=== PATIENT | male | born 1970 | race Caucasian/White ===

== ENCOUNTER 2024-08-31 19:29 | Emergency (ER) | payer MEDICARE, SELFPAY ==
[2024-08-31 19:35] VITALS: BP 117/83
[2024-08-31 20:07] LABS: COVID-19 Antigen Positive (Negative)
[2024-09-01 00:27] VITALS: BP 134/81
--- NOTE | 2024-09-01 02:41 | ED.GENMED ---
History of Present Illness
General
Chief Complaint: Fever
Source: patient and spouse
Time Seen by Provider: 08/31/24 22:45
History of Present Illness
History of Present Illness:
53-year-old male presents to the emergency room complaining of fever. Patient does not feel all that poorly but has a history of a heart transplant. He was advised to go to the emergency room for evaluation if he ever developed a temperature over
101. Patient does not recall any sick contacts. He has a mild cough. No shortness of breath. Heart transplant was performed in 2010. He has had the most recent COVID vaccinations.
Past History
Past History
ED Past Medical History: Cancer, Other (cardiac transplant lymphoma) and Other (Guilbert's, non-Hodgkin's lymphoma heart transplant)
ED Past Surgical History: Cardiac (txp heart)
Social History
Tobacco: Non-smoker
Alcohol: None
Drug: None
Personal:
Living: with family
Employment: Employed
Family History
Family History: Other (Noncontributory)
Phy Exam
Physical Exam
Physical Exam:
General: Awake, Alert, Oriented X3. No acute distress.
Vitals: unremarkable
Head: Atraumatic
Eyes: Pupils equal, EOMI
Throat: Airway intact, no exudates
Neck: Trachea midline
Lungs: Clear and equal b/l
Heart: Regular rate, no murmurs
Abd: Soft, Nontender, No pulsatile mass
Neuro: Nonfocal
Skin: Warm, dry, no rash
Extremities: pulses equal b/l, no edema
Course
Orders/Labs/Results
Orders:
Orders
08/31/24 19:42
COVID-19 Antigen Urgent
Source: Nasal Swab
INF RAPID [Influenza A+B Rapid Molecular] Urgent
DELLA Source: Nasal Swab
Specimen Description:
08/31/24 23:03
Electrocardiogram (*1) Urgent
Reason for Study: Fatigue / Weakness
EKG- Treatment ONCE
Abnormal Lab Results
08/31/24
19:42
SARS-CoV-2 Antigen Positive A
(Negative)
Vital Signs
Initial and Last Documented VS:
Initial Vital Signs
Temp Pulse Resp BP Pulse Ox
99.2 F 90 18 117/83 96
08/31/24 19:35 08/31/24 19:35 08/31/24 19:35 08/31/24 19:35 08/31/24 19:35
Last Documented Vital Signs
Temp Pulse Resp BP Pulse Ox
99.2 F 81 18 134/81 97
08/31/24 19:35 09/01/24 00:27 09/01/24 00:27 09/01/24 00:27 09/01/24 00:27
MDM/Problems Addressed
Differential Diagnosis Includes:
Influenza, COVID, pneumonia
MDM/Problems Addressed:
Patient presents with fever. Workup here shows that he is positive for COVID. Patient is not a candidate for Paxlovid use as his antirejection medications interact with Paxlovid. I did discuss the patient's presentation with the physician on-call
for the heart transplant team. He agreed that the best course of action at this point is supportive care with Tylenol and fluids. Patient should call the transplant team if he has any questions or concerns. Return to the emergency room if you
develop significant shortness of breath or any other concerns.
*Pulse Oximetry
Patient hypoxic: no
*EKG
Heart Rate: 64
Rate: normal
Rhythm: sinus
Interval: first degree heart block
QRS Pattern: other (Incomplete right bundle branch block)
Ischemia: no ischemia
*Business Transformation Manager Interpretation
Rate: normal
Interpretation: normal
Rhythm: sinus
*Critical Care Note
Total Time (30-74mins, 75-104mins- exclusive of procedures): Not Applicable
ED Attending Note
-
Portions of this chart may have been created with voice recognition software.� Occasional wrong word or��sound alike� substitutions may have occurred due to the inherent limitations of voice recognition software.
Discharge Plan
Departure
Patient Disposition: Home (Routine Discharge)
Date of Disposition: 09/01/24
Time of Disposition: 00:13
Patient with high blood pressure during this ER visit?: No
Discharge Problem:
COVID-19
Instructions: Fever, Adult (DC), COVID-19 - ED discharge instructions
Prescriptions:
No Action
mycophenolate mofetil 500 MG tablet
500 mg PO BID
tacrolimus 1 MG capsule
1 mg PO BID
pravastatin 10 MG tablet
10 mg PO QPM
cetirizine 10 MG tablet
10 mg PO QPM
multivitamin with folic acid [Tab-A-Jem] 1 TABLET tablet
1 tab PO DAILY
(DME) blood sugar diagnostic [MedShape Verio test strips] 1 EACH strip
1 ea MC ACHS Qty: 200 0RF
Rx Instructions:
E11.65
insulin aspart U-100 [Novolog FlexPen U-100 Insulin] 300 UNITS/3 ML insulin pen
7 units SC AC Qty: 5 0RF
Rx Instructions:
E11.65
(DME) pen needle, diabetic [BD Ultra-Fine Micro Pen Needle] 1 EACH needle
1 ea MC ACHS Qty: 200 0RF
Rx Instructions:
BD SYBIL 4mm pen needle
11.65
(DME) lancets [The MomentTouch Delica Lancets] 1 EACH misc
1 ea MC ACHS Qty: 200 0RF
Rx Instructions:
E11.65
insulin glargine [Lantus Solostar U-100 Insulin] 300 UNITS/3 ML insulin pen
22 units SC HS
aspirin 81 MG tablet,delayed release (DR/EC)
81 mg PO DAILY
simethicone [Gas-X Extra Strength] 125 MG tablet,chewable
125 mg PO DIRECTED
bisacodyl 5 MG tablet,delayed release (DR/EC)
10 mg PO DIRECTED
polyethylene glycol 3350 [Miralax] 119 GM powder
119 gm PO DIRECTED
polyethylene glycol 3350 238 GM powder
238 gm PO DIRECTED PRN (Reason: prep)
Referrals:
Cortez Jacobsen, DO [Family Provider] -
Activity Restrictions/Additional Instructions:
You are positive for Covid. I discussed the situation with Dr. Feild at [facility]. He agreed that there is no additional medications neccesary at this time. Give them a call with any concerns. Return to the ER if you start to feel short of breath,
dizzy or have concerns you are getting worse. You are likely to develop a fever again over the next 5 days or so.
Interventions
Interventions:
*Risk Screen - Suicide Last Done: 08/31/24 19:35
*General Assessment Last Done: 08/31/24 19:35
*Neglect/Abuse Screening Last Done: 08/31/24 19:35
*ED COVID-19 Vaccine History Last Done: 08/31/24 19:35
*Nursing Disposition Last Done: 09/01/24 00:28
ED- Neurological Assessment Last Done: 08/31/24 23:24
Discharge Date and Time
Discharge Date/Time: 09/01/24 00:28
Print Language: CYMRAES
== END 2024-09-01 00:28 | disposition home or self-care (01) ==
LOC: EMR 19:29
PROVIDERS: Emergency Medicine; EMERGENCY PHYSICIAN Emergency Medicine; FAMILY PHYSICIAN Family Medicine
DX: U07.1 COVID-19 (principal); Z94.1 Heart transplant status; Z85.72 Personal history of non-Hodgkin lymphomas
CPT/HCPCS: 99284; 87502; 87811; 93005

== ENCOUNTER 2025-04-06 19:55 | Emergency (ER) | payer MEDICARE, SELFPAY ==
[2025-04-06 20:12] VITALS: BP 137/84
[2025-04-06 23:07] LABS: Glucose - Point of Care 107 mg/dl (70-99)
[2025-04-06 23:09] VITALS: BMI 26.0
[2025-04-06 23:12] VITALS: BP 118/83
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
[2025-04-07 01:06] LABS: Hematocrit 43.3 % (39.0-52.0); Hemoglobin 15.6 g/dL (13.0-18.0); Mean Corp Hgb Conc. 36.0 g/dL (33.0-37.0); Mean Corpuscular Volume 82.0 fL (80.0-94.0); Nucleated Red Blood Cells % 0 % (-); Platelet Count 164 10^3/uL (130-400); Red Cell Dist. Width 13.2 % (11.5-14.5)
[2025-04-07 01:44] LABS: ALT (SGPT) 25 U/L (0-50); AST (SGOT) 21 U/L (17-59); Albumin 4.8 g/dl (3.5-5.0); Alkaline Phosphatase 59 U/L (38-126); Blood Urea Nitrogen 26 mg/dl (9-20); Calcium 9.0 mg/dl (8.4-10.2); Carbon Dioxide 25 mmol/L (22-30); Chloride 107 mmol/L (98-107); Estimated Creatinine Clearance 108 ml/min; Glucose 102 mg/dl (70-99); Potassium 3.9 mmol/L (3.5-5.1); Sodium 142 mmol/L (135-145); Total Protein 7.1 g/dl (6.3-8.2); eGFR > 60.00
[2025-04-07 02:00] VITALS: BP 112/83
[2025-04-07 03:12] VITALS: BP 121/95
[2025-04-07 03:57] VITALS: BP 129/91
== END 2025-04-07 04:01 | disposition home or self-care (01) ==
LOC: EMR 19:55
PROVIDERS: Physician Assistant; EMERGENCY PHYSICIAN Emergency Medicine
DX: R42 Dizziness and giddiness (principal); R51.9 Headache, unspecified; M54.2 Cervicalgia; H53.2 Diplopia; V49.49XA Driver injured in collision with other motor vehicles in traffic accident, initial encounter; E11.9 Type 2 diabetes mellitus without complications; I48.91 Unspecified atrial fibrillation; Z94.1 Heart transplant status; Z79.82 Long term (current) use of aspirin
CPT/HCPCS: 99284; 70450; 70496; 70498; 72125; 80053; 82962; 85025; 93005; Q9967

== ENCOUNTER 2025-05-04 20:21 | Observation (INO) | payer MEDICARE, SELFPAY ==
[2025-05-04] VITALS (8 sets, daily range): BP systolic 114–129; BP diastolic 73–90; PULSE 56–65; BMI 25.6
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
[2025-05-04 18:21] LABS: Hematocrit 41.5 % (39.0-52.0); Hemoglobin 14.8 g/dL (13.0-18.0); Mean Corp Hgb Conc. 35.7 g/dL (33.0-37.0); Mean Corpuscular Volume 82.5 fL (80.0-94.0); Nucleated Red Blood Cells % 0 % (-); Platelet Count 174 10^3/uL (130-400); Red Cell Dist. Width 13.0 % (11.5-14.5)
[2025-05-04 18:37] LABS: ALT (SGPT) 23 U/L (0-50); AST (SGOT) 24 U/L (17-59); Albumin 4.5 g/dl (3.5-5.0); Alkaline Phosphatase 53 U/L (38-126); Blood Urea Nitrogen 30 mg/dl (9-20); Calcium 9.8 mg/dl (8.4-10.2); Carbon Dioxide 27 mmol/L (22-30); Chloride 106 mmol/L (98-107); Estimated Creatinine Clearance 96 ml/min; Glucose 145 mg/dl (70-99); Potassium 4.5 mmol/L (3.5-5.1); Sodium 138 mmol/L (135-145); Total Protein 6.8 g/dl (6.3-8.2); eGFR > 60.00
--- NOTE | 2025-05-04 18:38 | PTCARENOTE ---
Patient awaiting to come back with dinner to check poc glucose for insulin administration
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
[2025-05-04 20:14] LABS: Glucose - Point of Care 120 mg/dl (70-99)
[2025-05-04] MEDS: NOVOLOG vial 7 UNITS SC (20:28)
[2025-05-04 23:00] LABS: Glucose - Point of Care 152 mg/dl (70-99)
[2025-05-04] MEDS: NSS 1000 IV (23:03)
[2025-05-04] MEDS: MAGNESIUM OXIDE 400 MG PO (23:05)
[2025-05-04] MEDS: LANTUS 0.22 UNITS SC (23:06)
--- NOTE | 2025-05-04 23:38 | TRANSFER ---
Pt admitted from ED dx of dizziness/vertigo/concussion. Neurological checks as ordered. Pt AAOx4, able to make all needs known. Assessments as documented. Orthostatic VS as ordered. Call riggins within reach, bed in lowest position. IVF administered as
ordered.
[2025-05-05 03:09] VITALS: BP 120/70
[2025-05-05 07:03] LABS: Hematocrit 43.1 % (39.0-52.0); Hemoglobin 15.0 g/dL (13.0-18.0); Mean Corp Hgb Conc. 34.8 g/dL (33.0-37.0); Mean Corpuscular Volume 83.9 fL (80.0-94.0); Platelet Count 175 10^3/uL (130-400); Red Cell Dist. Width 12.9 % (11.5-14.5)
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
[2025-05-05 07:26] LABS: Blood Urea Nitrogen 27 mg/dl (9-20); Calcium 9.4 mg/dl (8.4-10.2); Carbon Dioxide 30 mmol/L (22-30); Chloride 108 mmol/L (98-107); Estimated Creatinine Clearance 96 ml/min; Glucose 109 mg/dl (70-99); HDL Cholesterol 29 mg/dl; LDL Cholesterol, Calculated 53 mg/dl; Potassium 4.6 mmol/L (3.5-5.1); Sodium 142 mmol/L (135-145); Very Low Density Lipoprotein 16 mg/dl (0-30); eGFR > 60.00
[2025-05-05 07:40] VITALS: BP 113/77
[2025-05-05] MEDS: THERAGRAN 1 TABLET PO (08:13)
[2025-05-05] MEDS: CELLCEPT 500 MG PO (08:14)
[2025-05-05] MEDS: PROGRAF 1 MG PO (08:14)
[2025-05-05 08:21] LABS: Glucose - Point of Care 94 mg/dl (70-99)
[2025-05-05] MEDS: NOVOLOG FLEXPEN SC (08:25)
[2025-05-05] MEDS: NOVOLOG FLEXPEN-LOW RESISTANCE SC (08:25)
[2025-05-05 08:35] VITALS: BP 113/77
[2025-05-05 09:11] LABS: Glycohemoglobin (HgbA1c) 5.7 % (4.0-5.6)
[2025-05-05] MEDS: NSS 1000 IV (09:23)
[2025-05-05 11:05] VITALS: BP 133/76
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
[2025-05-05 12:03] LABS: Glucose - Point of Care 161 mg/dl (70-99)
--- NOTE | 2025-05-05 12:03 | CM ---
Reviewed the chart notes and spoke with the patient and spouse at the bedside. The patient is admitted under observational status. The observation letter was provided and explained. The patient had no questions with regards to the letter.
The patient resides with his spouse in a second floor apartment with elevator access. The patient reports no DME/SNF in the past, but did have VN after cardiac surgery many years ago. The patient confirmed his pharmacy is [facility].
continues to be available to patient/family and is monitoring medical plan for needs at discharge.
Plan: Discharge to home when medically stable. No anticipated needs identified at this time.
[2025-05-05] MEDS: NOVOLOG FLEXPEN 7 UNITS SC (12:23)
[2025-05-05] MEDS: NOVOLOG FLEXPEN-LOW RESISTANCE 1 UNITS SC (12:24)
[2025-05-05 13:25] LABS: C-Reactive Protein < 5.00 mg/L (0.0-10.00)
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
[2025-05-05 15:15] VITALS: BP 114/71
[2025-05-06 16:43] LABS: Lyme Antibody Screen, EIA Negative (Negative)
[2025-05-09 16:04] LABS: Calprotectin, Fecal >3000 ug/g (<=49)
== END 2025-05-05 16:55 | disposition home or self-care (01) ==
LOC: 2 SOUTH 20:21
PROVIDERS: Nurse Practitioner Adult Health; Physician Assistant; ADMITTING PHYSICIAN Hospitalist; ATTENDING PHYSICIAN Hospitalist; CONSULT PHYSICIAN Internal Medicine; EMERGENCY PHYSICIAN Emergency Medicine; FAMILY PHYSICIAN Physician Assistant
DX: H81.12 Benign paroxysmal vertigo, left ear (principal); R15.2 Fecal urgency; E11.9 Type 2 diabetes mellitus without complications; E80.4 Gilbert syndrome; R43.0 Anosmia; J30.2 Other seasonal allergic rhinitis; Z79.4 Long term (current) use of insulin; Z79.624 Long term (current) use of inhibitors of nucleotide synthesis; Z79.82 Long term (current) use of aspirin; Z79.899 Other long term (current) drug therapy; Z85.72 Personal history of non-Hodgkin lymphomas; Z90.49 Acquired absence of other specified parts of digestive tract; Z94.1 Heart transplant status
CPT/HCPCS: 80048; 80053; 80061; 82248; 82962; 83036; 83993; 84443; 85025; 85027; 85652; 86140; 86618; 87045; 87046; 87324; 87328; 87329; 87427; 87449; 89055; 93005; 97112; 97162; 99284; G0378

== ENCOUNTER 2025-06-16 06:02 | Day surgery (SDC) | payer OTHER, SELFPAY ==
[2025-06-16 09:25] VITALS: BMI 25.4
[2025-06-16 09:26] VITALS: BMI 25.4
[2025-06-16 09:27] VITALS: BP 119/79
[2025-06-16 09:43] LABS: Glucose - Point of Care 189 mg/dl (70-99)
[2025-06-16 11:15] VITALS: BP 101/73
[2025-06-16 11:30] VITALS: BP 96/64
[2025-06-16 11:30] LABS: Glucose - Point of Care 132 mg/dl (70-99)
[2025-06-16 11:45] VITALS: BP 101/68
== END 2025-06-16 12:15 | disposition home or self-care (01) ==
LOC: SDS 06:02
PROVIDERS: ATTENDING PHYSICIAN Internal Medicine
DX: K63.89 Other specified diseases of intestine (principal); K62.89 Other specified diseases of anus and rectum; R19.5 Other fecal abnormalities; R19.4 Change in bowel habit; K22.89 Other specified disease of esophagus; K44.9 Diaphragmatic hernia without obstruction or gangrene; K31.89 Other diseases of stomach and duodenum; R10.13 Epigastric pain
CPT/HCPCS: 45380; 43239; 82962; 88305; 88312; 88341; 88342